=== PATIENT | female | born 1935 | race Caucasian/White ===

== ENCOUNTER 2020-06-19 15:57 | Emergency (ER) | payer MEDICARE, OTHER ==
[2020-06-19] MEDS: Sodium Chloride 0.9% 10 ML Syringe FLUSH PRN (16:00)
--- NOTE | 2020-06-19 16:32 | EDM.PDOC ---
ED HPI GENERAL MEDICAL PROBLEM - General Stated Complaint: DIZZY Time Seen by Provider: 06/19/20 16:05 Source of Information: Reports: Patient History Limitations: Reports: No Limitations - History of Present Illness INITIAL COMMENTS - FREE TEXT/NARRATIVE: patient presented to the ER with a c/o emesis and nausea for 3-4 hrs. Also associated with dizziness. Patient is a poor historian due to dementia, but is here, and he is helping with the details. Reports that he returned home around noon, and that's when he found her c/o emesis and dizziness that temp resolved before it recurred again. First time she experience something like this. No fever or chills. No CP or SOB. No abd pain or bloating. No symptoms at this time. Feeling well. h/o HTN, and CAD. Blood pressure is slightly high at the moment still 190/85. Onset: Today Duration: Hour(s): (4) - Related Data Allergies Allergy/AdvReac Type Severity Reaction Status Date / Time No Known Allergies Allergy Verified 02/04/13 13:01 Home Meds: Home Meds Cholecalciferol (Vitamin D3) [Vitamin D] 5,000 units PO DAILY 06/19/20 [History] Donepezil HCl 10 mg PO DAILY 06/19/20 [History] HCTZ/Triamterene [Dyazide 25-37.5 MG] 12.5 - 18.75 mg PO DAILY 06/19/20 [History] Isosorbide Mononitrate [Isosorbide Mononitrate ER] 30 mg PO DAILY 06/19/20 [History] Memantine HCl [Namenda] 5 mg PO DAILY 06/19/20 [History] Metoprolol/Hydrochlorothiazide [Metoprolol-HCTZ 50-25 MG] 50 mg PO DAILY 06/19/20 [History] Simvastatin [Zocor] 40 mg PO DAILY 06/19/20 [History] lisinopriL [Lisinopril] 20 mg PO DAILY 06/19/20 [History] Past Medical History Other Cardiovascular History: stress test negative in past Other Neuro History: forgetful - Past Surgical History Other Neurological Surgeries/Procedures: upper lumbar fusion 2011 Other Musculoskeletal Surgeries/Procedures:: R SCARLETT in August 2013 ED ROS GENERAL - Review of Systems Review Of Systems: See Below Constitutional: Reports: No Symptoms. Denies: Fever, Chills HEENT: Reports: No Symptoms Respiratory: Reports: No Symptoms Cardiovascular: Reports: No Symptoms GI/Abdominal: Reports: No Symptoms Skin: Reports: No Symptoms Neurological: Reports: Dizziness ED EXAM, GENERAL - Physical Exam Exam: See Below Free Text/Narrative:: NIH scale 0 Exam Limited By: No Limitations General Appearance: Alert, WD/WN, No Apparent Distress Eye Exam: Bilateral Eye: EOMI, PERRL Head: Atraumatic, Normocephalic Respiratory/Chest: No Respiratory Distress, Lungs Clear, Normal Breath Sounds Cardiovascular: Normal Peripheral Pulses, Regular Rate, Rhythm GI/Abdominal: Normal Bowel Sounds Back Exam: Normal Inspection, Full Range of Motion Extremities: Normal Inspection Neurological: Alert, Oriented, CN II-XII Intact, No Motor/Sensory Deficits, Other (NIH 0) #1 Interpretation EKG Date: 06/19/20 Rhythm: NSR [place]: Normal P-Wave: Present QRS: Normal ST-T: Normal QT: Normal Course - Vital Signs Last Recorded V/S: Last Vital Signs Temp 35.9 C L 06/19/20 16:00 Pulse 69 06/19/20 18:54 Resp 11 L 06/19/20 18:54 BP 173/55 H 06/19/20 18:54 Pulse Ox 97 06/19/20 18:54 - Orders/Labs/Meds Orders: Active Orders 24 hr Category Date Time Status EKG Documentation Completion [RC] ASDIRECTED Care 06/19/20 16:09 Active EKG Documentation Completion [RC] ASDIRECTED Care 06/19/20 18:38 Ordered CULTURE URINE [RM] Urgent Lab 06/19/20 17:06 Received Sodium Chloride 0.9% [Saline Flush] Med 06/19/20 16:09 Active 10 ml FLUSH ASDIRECTED PRN Saline Lock Insert [OM.PC] Routine Oth 06/19/20 16:09 Ordered EKG 12 Lead [EK] Routine Ther 06/19/20 18:38 Ordered Medication Orders Sodium Chloride (Sodium Chloride 0.9% 10 Ml Syringe) 10 ml FLUSH ASDIRECTED PRN PRN Reason: Keep Vein Open Last Admin: 06/19/20 16:00 Dose: 10 ml Documented by: RENATA Labs: Laboratory Tests 03/29/21 03/29/21 03/29/21 Range/Units 16:08 16:08 17:06 WBC 9.4 (4.0-11.0) K/uL RBC 4.65 (3.80-5.80) M/uL Hgb 14.4 (11.5-16.5) g/dL Hct 41.1 (37.0-47.0) % MCV 88 (76-96) fL MCH 31.0 (27.0-32.0) pg MCHC 35.0 (31.0-35.0) g/dL RDW 13.2 (11.0-16.0) % Plt Count 235 D (150-500) K/uL MPV 9.1 (6.0-10.0) fL Sodium 139 (136-145) mmol/L Potassium 3.2 L (3.5-5.1) mmol/L Chloride 100 (98-107) mmol/L Carbon Dioxide 24.9 (21.0-32.0) mmol/L Anion Gap 17.3 H (5.0-15.0) mmol/L BUN 15 (8-26) mg/dL Creatinine 1.70 H (0.55-1.02) mg/dL Est Cr Clr Drug Dosing TNP Estimated GFR (MDRD) 29 L (>60) MLS/MIN BUN/Creatinine Ratio 8.8 (6-25) Glucose 163 H D (74-100) mg/dL Calcium 9.6 (8.5-10.1) mg/dL Total Bilirubin 0.5 D (0.0-1.0) mg/dL AST 19 (15-37) U/L ALT 31 (12-78) U/L Alkaline Phosphatase 67 (46-116) U/L Troponin I < 0.017 (0.000-0.060) ng/mL Total Protein 8.7 H (6.4-8.2) g/dL Albumin 4.5 (3.4-5.0) g/dL Globulin 4.2 (2.2-4.2) g/dL Albumin/Globulin Ratio 1.1 (0.8-2.0) Lipase 220 (73-393) U/L Urine Color Yellow Urine Appearance Slightly cloudy (CLEAR) Urine pH 5.0 (5.0-8.0) Ur Specific [place] 1.025 (1.003-1.030) Urine Protein 100 H (NEGATIVE) mg/dL Urine Glucose (UA) Negative (NEGATIVE) mg/dL Urine Ketones Negative (NEGATIVE) mg/dL Urine Occult Blood Trace-intact H (NEGATIVE) Urine Nitrite Positive H (NEGATIVE) Urine Bilirubin Negative (NEGATIVE) Urine Urobilinogen 0.2 (0.2-1.0) E.U./dL Ur Leukocyte Esterase Negative (NEGATIVE) Urine RBC 0-5 H /HPF Urine WBC 10-20 H /HPF Urine WBC Clumps Few /HPF Ur Squamous Epith Cells Few /HPF Urine Bacteria Many H /HPF Meds: Medications Generic Name Dose Route Start Last Admin Trade Name Freq PRN Reason Stop Dose Admin Sodium Chloride 10 ml 06/19/20 16:09 06/19/20 16:00 Sodium Chloride 0.9% 10 Ml Syringe FLUSH 10 ml ASDIRECTED PRN Administration Keep Vein Open Discontinued Medications Generic Name Dose Route Start Last Admin Trade Name Freq PRN Reason Stop Dose Admin Aspirin 324 mg 06/19/20 18:39 Aspirin 81 Mg Tab.Chew PO 06/19/20 18:40 ONETIME ONE Labetalol HCl 10 mg 06/19/20 16:48 06/19/20 17:36 Labetalol 100 Mg/20 Ml Mdv IVPUSH 06/19/20 16:49 10 mg ONETIME ONE Administration Protocol Potassium Chloride 10 meq 06/19/20 17:54 06/19/20 18:04 Potassium Chloride 10 Meq Tab.Er PO 06/19/20 17:55 10 meq ONETIME ONE Administration Simvastatin 20 mg 06/19/20 18:39 Simvastatin 20 Mg Tab PO 06/19/20 18:40 ONETIME ONE Trimethoprim/Sulfamethoxazole 1 tab 06/19/20 17:52 06/19/20 18:04 Sulfamethoxazole/Trimethoprim 800-160 Mg Tab PO 06/19/20 17:53 1 tab ONETIME ONE Administration - Re-Assessments/Exams Free Text/Narrative Re-Assessment/Exam: patient was connected to monitor EKG NSR, no afib BP was noted to be elevated to 192/85, HR 72 Patient alert and oriented to TPP X3 stat CT head was ordered to r/u stroke. at 17:25 - prelim reports at 1725 - no e/o stroke,, but extensive small vessel disease. labs - showed Cr 1.8 - around her baseline. Given that CT was negative for a stroke - labetalol 10mg was given to control her BP. This brought her BP from 195 to 170. at 18:19 got call from [facility] - that there is a possible acute/subacute stroke affecting the cerebellar area bilaterally. no bleeding discussed the case with the family and neurologist at [place] Dr. Rosario who recommended a transfer for further workups, MRI and ECHO. Those services aren't available locally here soon. ASA 325mg and simvastatin were given. Patient was also noted to have a positive UA for UTI. Bactrim PO was given. 06/19/20 19:21 Departure - Departure Time of Disposition: 19:01 Disposition: DC/Tfer to Acute Hospital 02 Condition: Fair Clinical Impression: Cerebellar stroke CVA (cerebral vascular accident) Qualifiers: CVA mechanism: unspecified Qualified Code(s): I63.9 - Cerebral infarction, unspecified UTI (urinary tract infection) Qualifiers: Urinary tract infection type: site unspecified Hematuria presence: without hematuria Qualified Code(s): N39.0 - Urinary tract infection, site not specified - Discharge Information *PRESCRIPTION DRUG MONITORING PROGRAM REVIEWED*: Not Applicable *COPY OF PRESCRIPTION DRUG MONITORING REPORT IN PATIENT KRISHNA: Not Applicable Referrals: PCP,None [Primary Care Provider] - Sepsis Event Note (ED) - Focused Exam Vital Signs: Vital Signs Temp Pulse Resp BP Pulse Ox 06/19/20 18:54 69 11 L 173/55 H 97 06/19/20 18:47 69 18 168/63 H 94 L 06/19/20 17:41 69 16 169/70 H 96 06/19/20 17:15 70 192/68 H 06/19/20 17:14 192/68 H 06/19/20 16:38 65 17 195/69 H 96 06/19/20 16:30 70 16 182/71 H 97 06/19/20 16:15 66 16 183/66 H 97 06/19/20 16:00 35.9 C L 66 16 192/60 H 97 - My Orders Last 24 Hours: My Active Orders 06/19/20 16:09 EKG Documentation Completion [RC] ASDIRECTED Sodium Chloride 0.9% [Saline Flush] 10 ml FLUSH ASDIRECTED PRN Saline Lock Insert [OM.PC] Routine 06/19/20 17:06 CULTURE URINE [RM] Urgent 06/19/20 18:38 EKG Documentation Completion [RC] ASDIRECTED EKG 12 Lead [EK] Routine - Assessment/Plan Last 24 Hours: My Active Orders 06/19/20 16:09 EKG Documentation Completion [RC] ASDIRECTED Sodium Chloride 0.9% [Saline Flush] 10 ml FLUSH ASDIRECTED PRN Saline Lock Insert [OM.PC] Routine 06/19/20 17:06 CULTURE URINE [RM] Urgent 06/19/20 18:38 EKG Documentation Completion [RC] ASDIRECTED EKG 12 Lead [EK] Routine
[2020-06-19] MEDS: Labetalol 100 MG/20 ML MDV IVPUSH ONE (17:36)
[2020-06-19] MEDS: Potassium Chloride 10 MEQ Tab.ER PO ONE (18:04)
[2020-06-19] MEDS: Sulfamethoxazole/Trimethoprim 800-160 MG Tab PO ONE (18:04)
--- NOTE | 2020-06-19 18:37 | CT ---
DATE OF SERVICE: 06/19/2020 CLINICAL DATA: Dizziness. UNENHANCED BRAIN CT: Multislice acquisition through the brain without IV contrast was performed. Comparison is made to a prior exam dated 08 July 2014. There is diffuse cerebral atrophy. There are periventricular lucencies bilaterally consistent with small vessel ischemic change. There are poorly defined areas of decreased attenuation in both cerebellar hemispheres suspicious for acute/subacute infarcts. No masses. No intracranial hemorrhage. No osseous abnormalities. There is a small nodule in the scalp in the right anterior parietal region most likely representing a epidermal inclusion cyst. IMPRESSION: Abnormal exam. See above. The patient's physician was notified of the findings by telephone. [id number] [facility]
[2020-06-19] MEDS: Aspirin 81 MG Tab.Chew PO ONE (19:10)
[2020-06-19] MEDS: Simvastatin 20 MG Tab PO ONE (19:11)
[2020-06-19 20:17] VITALS: BP 149/66; PULSE 72
== END 2020-06-19 20:37 ==
LOC: LB.ED 15:57
DX: I63.9 Cerebral infarction, unspecified (principal); N39.0 Urinary tract infection, site not specified; I10 Essential (primary) hypertension; I25.2 Old myocardial infarction; Z79.899 Other long term (current) drug therapy
CPT/HCPCS: 36415; 70450; 80053; 81001; 83690; 84484; 85027; 87086; 87088; 87186; 93005; 96374; 99284; 99285-25; A0425; A0429; A9270-GY; J3490

== ENCOUNTER 2020-06-29 11:17 | Emergency (ER) | payer MEDICARE, OTHER ==
--- NOTE | 2020-06-29 12:51 | CT ---
DATE OF SERVICE: 06/29/2020 CLINICAL DATA: RIGHT HAND NUMBNESS, RECENT CVA Unenhanced brain CT: Multislice acquisition through the brain without IV contrast was performed. Comparison is made to a prior exam dated 19 June 2020. There is mild atrophy. There are periventricular lucencies bilaterally consistent with small vessel ischemic change. There are subtle lucencies in the cerebellar hemispheres bilaterally, unchanged from the prior exam. No masses or mass effect. No intracranial hemorrhage. No evidence of acute or subacute infarct. Impression: No acute intracranial abnormalities. MTDD
--- NOTE | 2020-06-29 13:04 | EDM.PDOC ---
ED HPI GENERAL MEDICAL PROBLEM - General Stated Complaint: HEADACHE / TINGLING FINGERS Time Seen by Provider: 06/29/20 12:00 Source of Information: Reports: Patient, Family History Limitations: Reports: Other (dementia PMH) - History of Present Illness INITIAL COMMENTS - FREE TEXT/NARRATIVE: 85 year old female with PMH of dementia, stroke , present to ED with right hand tingling since 0800 this AM. She was seen in clinic, but her daughter called the ED and wanted a second opinion. The patient denies any pain, weakness, visual changes, dizziness, CP, SOB, fever. Her family is very concerned as she also reported a right sided frontal WATERS at 0300 last night that was resolved with tylenol. The tingling has remained constant and does not radiate. Onset: Today Location: Reports: Upper Extremity, Right Improves with: Reports: None Worsens with: Reports: None - Related Data Allergies Allergy/AdvReac Type Severity Reaction Status Date / Time No Known Allergies Allergy Verified 02/04/13 13:01 Home Meds: Home Meds Cholecalciferol (Vitamin D3) [Vitamin D] 5,000 units PO DAILY 06/19/20 [History] Donepezil HCl 10 mg PO DAILY 06/19/20 [History] HCTZ/Triamterene [Dyazide 25-37.5 MG] 12.5 - 18.75 mg PO DAILY 06/19/20 [History] Isosorbide Mononitrate [Isosorbide Mononitrate ER] 30 mg PO DAILY 06/19/20 [History] Memantine HCl [Namenda] 5 mg PO DAILY 06/19/20 [History] Metoprolol/Hydrochlorothiazide [Metoprolol-HCTZ 50-25 MG] 50 mg PO DAILY 06/19/20 [History] Simvastatin [Zocor] 40 mg PO DAILY 06/19/20 [History] lisinopriL [Lisinopril] 20 mg PO DAILY 06/19/20 [History] Past Medical History Cardiovascular History: Reports: Hypertension, Stents Other Cardiovascular History: stress test negative in past Gastrointestinal History: Reports: Other (See Below) Other Gastrointestinal History: belching much of the time 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: Neurological History: Reports: CVA Other Neuro History: forgetful Psychiatric History: Reports: Dementia - Infectious Disease History Other Infectious Disease History: unable to verify - Past Surgical History GI Surgical History: Reports: Cholecystectomy Other Neurological Surgeries/Procedures: upper lumbar fusion 2011 Other Musculoskeletal Surgeries/Procedures:: R SCARLETT in August 2013 Social & Family History - Family History Family Medical History: Unobtainable - Caffeine Use Caffeine Use: Reports: Coffee ED ROS GENERAL - Review of Systems Review Of Systems: See Below Constitutional: Reports: No Symptoms HEENT: Reports: No Symptoms Respiratory: Reports: No Symptoms Cardiovascular: Reports: No Symptoms Endocrine: Reports: No Symptoms GI/Abdominal: Reports: No Symptoms : Reports: No Symptoms Musculoskeletal: Reports: Other (right hand tingling) Skin: Reports: No Symptoms Neurological: Reports: Tingling Psychiatric: Reports: No Symptoms Hematologic/Lymphatic: Reports: No Symptoms Immunologic: Reports: No Symptoms ED EXAM, NEURO - Physical Exam Exam: See Below Exam Limited By: No Limitations General Appearance: Alert, No Apparent Distress Eye Exam: Bilateral Eye: Normal Fundi, Normal Inspection, PERRL Ears: Normal External Exam, Normal Canal, Hearing Grossly Normal, Normal TMs Nose: Normal Inspection, Normal Mucosa, No Blood Throat/Mouth: Normal Inspection, Normal Lips, Normal Gums, Normal Oropharynx, Normal Voice, No Airway Compromise Head Exam: Atraumatic Neck: Normal Inspection, Non-Tender, Full Range of Motion Respiratory/Chest: No Respiratory Distress, Lungs Clear, Normal Breath Sounds, No Accessory Muscle Use Cardiovascular: Normal Peripheral Pulses, Regular Rate, Rhythm, No Edema, No JVD, No Murmur GI/Abdominal: Normal Bowel Sounds, Soft, Non-Tender Neurological: Alert, Normal Mood/Affect, Normal Dorsiflexion, CN II-XII Intact, Normal Plantar Flexion, Normal Gait, Normal Reflexes, No Motor/Sensory Deficits, Oriented x 3 Back Exam: Normal Inspection, Full Range of Motion Extremities: Normal Inspection, Normal Range of Motion, Non-Tender, No Pedal Edema, Normal Capillary Refill Psychiatric: Normal Affect, Normal Mood Skin Exam: Warm, Dry, Intact Departure - Departure Time of Disposition: 13:02 Disposition: Home, Self-Care 01 Condition: Good Clinical Impression: Numbness and tingling in right hand - Discharge Information *PRESCRIPTION DRUG MONITORING PROGRAM REVIEWED*: Not Applicable *COPY OF PRESCRIPTION DRUG MONITORING REPORT IN PATIENT KRISHNA: Not Applicable Referrals: PCP,None [Primary Care Provider] - Additional Instructions: Your head CT today showed no acute stroke or any changes from the previous CT 06/19/2020. Return to ED for any increased or new concerning symptoms as we discussed. Follow up in [place] as planned. - Assessment/Plan Plan: Discussed with and patient when to return to ED including dizziness, headaches, increased weakness, vision changes, falls. They verbalized underst anding and all questions were answered prior to DC. They will follow up on [place] with neuro next week as planned.
[2020-06-29 17:07] VITALS: BP 118/52; PULSE 57
== END 2020-06-29 13:10 | disposition home or self-care (01) ==
LOC: LB.ED 11:17
DX: R20.0 Anesthesia of skin (principal); R20.2 Paresthesia of skin; I10 Essential (primary) hypertension; Z79.899 Other long term (current) drug therapy; Z86.73 Personal history of transient ischemic attack (TIA), and cerebral infarction without residual deficits
CPT/HCPCS: 70450; 99284-25

== ENCOUNTER 2020-09-12 13:21 | Emergency (ER) | payer MEDICARE, OTHER ==
[2020-09-12 14:32] VITALS: BP 134/76; PULSE 88
[2020-09-12] MEDS ORDERED: Ondansetron 4 MG Tab.DIS PO ONE (15:05)
[2020-09-12] MEDS ORDERED: HYDROmorphone 2 MG/ML SDV ONE (15:16)
[2020-09-12] MEDS ORDERED: Ondansetron 4 MG Tab.DIS ONE (15:16)
[2020-09-12] MEDS ORDERED: HYDROmorphone 4 MG/ML Syringe SUBCUT ONE (15:25)
--- NOTE | 2020-09-12 16:07 | ER ---
HISTORY OF PRESENT ILLNESS: An 85-year-old lady who comes in by private car after falling at home and injuring her left hip. She is pointing to the lateral and posterior aspect of the hip when describing the area of pain. The patient is lying on the exam table with her left knee bent, so her foot is flat on the table. She states that she has minimal pain in this position, but any type of movement is significantly painful. She also scraped her left elbow when she fell. She states this actually hurts more than her hip. Nursing staff has already applied a Band-Aid to this area. I will examine this shortly. She denies any other injuries. No problems with shortness of breath, chest pain, headache, neck pain, abdominal pain, or nausea. PAST MEDICAL HISTORY: Includes a stroke in May of 2020 and history of dementia. MEDICATIONS: The patient is on a blood thinner, family is unsure of the name of it at this time. OBJECTIVE: GENERAL APPEARANCE: The patient is awake and alert. No obvious distress. VITAL SIGNS: Reviewed. She is afebrile. Blood pressure 134/76, pulse 88, respirations 16. EXTREMITIES: First examining the left elbow reveals an abrasion injury beneath the Band-Aid that is 2 to 3 cm in diameter. It is superficial. The patient can flex and extend the elbow with just minimal pain and the pain is at the abrasion site. There is no swelling in this area. Examining the left hip reveals pain on the lateral and posterior aspect of the hip with light palpation. There is no tenderness with palpation on the anterior aspect of the hip or into the groin area. DIAGNOSTIC DATA: X-ray of the left hip is obtained showing a fracture that I would call an intracapsular fracture, slightly impacted. X-ray of the left elbow was obtained and is negative for any acute bony changes. DIAGNOSIS: Left hip fracture. TREATMENT PLAN: I consulted with Orthopedics in [place], Dr. Finn who accepted the patient and arrangements will be made to have her transferred down by ambulance. I will give the patient 1 mg of Dilaudid subcu and 4 mg of Zofran sublingual shortly before she leaves our facility. Condition upon discharge stable. CRS/MODL /[id number]
--- NOTE | 2020-09-13 08:20 | CR ---
Date of Service: 09/12/20 Clinical Data: fall. AP CHEST: Comparison is made to a prior exam dated 04/18/09. The heart size is normal. The lungs are clear. No pneumothorax. No pleural effusions. No evidence of acute intrathoracic disease. [id number] [facility]
--- NOTE | 2020-09-13 11:22 | CR ---
DATE OF SERVICE: 09/12/2020 CLINICAL DATA: FALL Left elbow: The no acute fracture or dislocation. No lytic or blastic bone lesions. No joint effusion. There is minimal soft tissue swelling over the olecranon process suggesting mild olecranon bursitis. MTDD
--- NOTE | 2020-09-13 11:24 | CR ---
DATE OF SERVICE: 09/12/2020 CLINICAL DATA: FALL Left hip: There is an impacted subcapital femoral neck fracture. No other acute abnormalities. There are degenerative changes of the left hip joint and left SI joint. There are surgical changes in the lower lumbar spine with internal fixation. Impression: Acute, impacted, subcapital femoral neck fracture. [facility]
== END 2020-09-12 15:20 ==
LOC: LB.ED 13:21
DX: S72.012A Unspecified intracapsular fracture of left femur, initial encounter for closed fracture (principal); Z20.822 Contact with and (suspected) exposure to COVID-19; W18.39XA Other fall on same level, initial encounter; Y92.009 Unspecified place in unspecified non-institutional (private) residence as the place of occurrence of the external cause
CPT/HCPCS: 36415; 71045; 73070-LT; 73502-LT; 80048; 85025; 85610; 93005; 96372; 99284; 99285-25; A0425; A0429; A9270-GY; J1170; U0002

== ENCOUNTER 2021-06-05 12:38 | Observation (INO) | payer MEDICARE, OTHER ==
[2021-06-05] MEDS ORDERED: Acetaminophen 325 MG Tab PO PRN (14:07)
[2021-06-05] MEDS ORDERED: LORazepam 2 MG/ML SDV IV PRN (14:07)
[2021-06-05] MEDS ORDERED: Sodium Chloride 0.9% 10 ML Syringe FLUSH PRN (16:27)
[2021-06-05] MEDS ORDERED: Sodium Chloride 0.9% 1,000 ML IV ONE (16:27)
[2021-06-05] MEDS ORDERED: Lisinopril 20 MG Tab PO ONE (18:56)
[2021-06-05] MEDS ORDERED: Lisinopril 20 MG Tab ONE (18:58)
[2021-06-05] MEDS ORDERED: Metoprolol Tartrate 50 MG Tab PO SCH (20:00)
[2021-06-05] MEDS: APIXABAN 2.5 MG PO SCH (21:00)
[2021-06-06 07:00] VITALS: BP 151/59; PULSE 60
[2021-06-06] MEDS ORDERED: HCTZ PO SCH (08:00)
[2021-06-06] MEDS ORDERED: LISINOPRIL 20 MG PO SCH (08:00)
[2021-06-06] MEDS ORDERED: TRIAMTERENE PO SCH (08:00)
[2021-06-06] MEDS ORDERED: ISOSORBIDE MONONITRATE 30 MG PO SCH (08:00)
[2021-06-06] MEDS ORDERED: ISOSORBIDE MONO 30 MG PO SCH (08:00)
[2021-06-06] MEDS ORDERED: Non-Formulary Medication 1 Each (Simvastatin [Zocor] 40 MG Tablet) PO SCH (08:00)
[2021-06-06] MEDS ORDERED: [UNRECOGNIZED DRUG - OTHER] PO SCH (08:00)
[2021-06-06] MEDS ORDERED: HYDROCHLOROTHIAZIDE PO SCH (08:00)
[2021-06-06] MEDS ORDERED: MEMANTINE HCL 5 MG PO SCH (08:00)
[2021-06-06] MEDS ORDERED: DONEPEZIL 10 MG PO SCH (08:00)
[2021-06-06] MEDS ORDERED: METOPROLOL PO SCH (08:00)
[2021-06-06] MEDS ORDERED: VITAMIN C 500 MG PO SCH (08:00)
[2021-06-06] MEDS ORDERED: LOSARTAN 50 MG PO SCH (08:00)
[2021-06-06] MEDS ORDERED: VITAMIN D3 PO SCH (08:00)
[2021-06-06] MEDS: APIXABAN 2.5 MG PO SCH (09:04)
[2021-06-06] MEDS ORDERED: LIPITOR 40 MG PO SCH (20:00)
[2021-06-06] MEDS ORDERED: TRAZODONE 50MG TABLETS PO SCH (20:00)
[2021-06-07] MEDS ORDERED: DONEPEZIL 10 MG PO SCH (08:00)
== END 2021-06-06 11:00 | disposition home or self-care (01) ==
LOC: LB.ED 12:38 → LB.MS 14:07
PROVIDERS: ADMIT Physician Assistant; ATTEND Physician Assistant
DX: G45.9 Transient cerebral ischemic attack, unspecified (principal); H54.7 Unspecified visual loss; I10 Essential (primary) hypertension; F03.90 Unspecified dementia, unspecified severity, without behavioral disturbance, psychotic disturbance, mood disturbance, and anxiety; Z90.49 Acquired absence of other specified parts of digestive tract; Z95.5 Presence of coronary angioplasty implant and graft; Z86.73 Personal history of transient ischemic attack (TIA), and cerebral infarction without residual deficits; Z79.01 Long term (current) use of anticoagulants; Z79.899 Other long term (current) drug therapy; Z20.822 Contact with and (suspected) exposure to COVID-19
CPT/HCPCS: 36415; 70450; 80048; 80307; 81003; 84484; 85025; 93005; 96374; 99285; A9270; G0378; J2060; U0002; 99222; 99238